=== PATIENT | male | born 1970 | race African-American/Black ===

== ENCOUNTER 2024-07-28 01:43 | Inpatient (IN) | payer OTHER ==
[~2024-07-28] VITALS: Ht 185.4 cm; Wt 90.9 kg
[2024-07-28 02:11] LABS: BASOPHILS % (AUTO) 0.3 % (0.0-2.0); EOSINOPHILS % (AUTO) 0.6 % (1.0-6.0); HEMATOCRIT 44.2 % (41-53); HEMOGLOBIN 15.1 g/dL (13.5-17.5); LYMPHOCYTES # (AUTO) 1.4 K/uL (1.0-4.8); LYMPHOCYTES % (AUTO) 17.3 % (22.0-44.0); MEAN CORPUSCULAR HEMOGLOBIN 30.6 pg (26.0-34.0); MEAN CORPUSCULAR HGB CONC 34.2 G/dL (31.0-37.0); MEAN CORPUSCULAR VOLUME 89 fL (80-100); MONOCYTES # (AUTO) 0.9 K/uL (0.1-1.0); MONOCYTES % (AUTO) 11.9 % (2.0-9.0); NEUTROPHILS # (AUTO) 5.5 K/uL (1.8-7.7); NEUTROPHILS % (AUTO) 69.9 % (40.0-70.0); PLATELET COUNT (AUTO) 227 K/uL (150-450); RED BLOOD CELL COUNT(AUTO) 4.94 MIL/uL (4.50-5.90); WHITE BLOOD COUNT (AUTO) 7.9 K/uL (4.5-11.0)
[2024-07-28] MEDS ORDERED: IOHEXOL 350 MG/ML 100 ML VIAL ONE (02:14)
[2024-07-28] MEDS ORDERED: SODIUM CHLORIDE 0.9% 100 ML ONE (02:15)
[2024-07-28 02:19] LABS: ANION GAP 8 mmol/L (8-16); CALCIUM, TOTAL 9.4 mg/dL (8.8-10.5); CARBON DIOXIDE 28 mmol/L (22-29); CHLORIDE 104 mmol/L (98-107); CREATININE 1.41 mg/dL (0.60-1.30); GLOMERULAR FILTR. RATE CALC > 60 mL/min (>60); GLUCOSE,RANDOM 98 mg/dL (70-110); POTASSIUM 3.7 mmol/L (3.5-5.1); SODIUM SERUM 140 mmol/L (136-145); UREA NITROGEN, BLOOD 27 mg/dL (7-18)
[2024-07-28 02:25] LABS: ALANINE AMINOTRANSFERASE 45 U/L (12-78); ALBUMIN 3.7 g/dL (3.4-5.0); ALKALINE PHOSPHATASE 118 U/L (46-116); ASPARTATE AMINOTRANSFERASE 78 U/L (15-37); BILIRUBIN,TOTAL 3.8 mg/dL (0.1-1.0); TOTAL PROTEIN, SERUM 7.5 g/dL (6.4-8.2)
[2024-07-28 02:26] LABS: AMMONIA < 10 umol/L (11-32)
[2024-07-28 02:34] LABS: ALCOHOL, BLOOD (SERUM) < 3 mg/dL (0-10); CREATINE KINASE, TOTAL ONLY 1926 U/L (39-308); TROPONIN I-HIGH SENSITIVITY 22 ng/L (<76)
[2024-07-28 02:41] LABS: B-TYPE NATRIURETIC PEPTIDE 29 pg/mL (0-100)
[2024-07-28] MEDS: LABETALOL HCL 5 MG/ML 20 ML VIAL IVP ONE (02:59)
[2024-07-28] MEDS: LevETIRAcetam 1,000 MG in DEXTROSE 5%-WATER 100 ML IV ONE (03:00)
[2024-07-28] MEDS: NiCARDipine HCL 25 MG in SODIUM CHLORIDE 0.9% 240 ML IV PRN (03:01)
[2024-07-28 03:21] LABS: PROTHROMBIN TIME 11.4 SEC (9.4-11.6)
[2024-07-28 05:19] LABS: APPEARANCE,URINE CLEAR (CLEAR); BILIRUBIN,URINE NEGATIVE (NEGATIVE); COLOR,URINE LIGHT YELLOW (YELLOW); GLUCOSE, URINE (UA) NEGATIVE (NEGATIVE); LEUKOCYTE ESTERASE ,URINE NEGATIVE (NEGATIVE); NITRATE,URINE NEGATIVE (NEGATIVE); OCCULT BLOOD,URINE SMALL (NEGATIVE); PH,URINE 6.5 (5.0-8.0); PROTEIN,URINE TRACE mg/dL (NEGATIVE); SPECIFIC GRAVITIY, URINE 1.045 (1.003-1.030); UROBILINOGEN,URINE <=1.0 mg/dL (<=1.0)
[2024-07-28] MEDS: SODIUM CHLORIDE 0.9% 1,000 ML IV ONE (05:27)
[2024-07-28 05:34] LABS: BACTERIA,URINE None Seen /HPF (None Seen); RBC,URINE 0-2 /HPF (0-2); SQUAMOUS EPITHELIAL CELL,UR Few /LPF (None Seen); WBC,URINE None Seen /HPF (0-5)
[2024-07-28 06:44] LABS: PH,URINE DRUG SCREEN 6.5 (5.0-8.0)
[2024-07-28 06:53] LABS: ALCOHOL, URINE DRUG SCREEN NEGATIVE (NEGATIVE); AMPHET/METH SCREEN,URINE NEGATIVE (NEGATIVE); BARBITURATE SCREEN, URINE NEGATIVE (NEGATIVE); BENZODIAZEPINES SCREEN,URINE NEGATIVE (NEGATIVE); CANNABINOID SCREEN,URINE NEGATIVE (NEGATIVE); COCAINE SCREEN,URINE NEGATIVE (NEGATIVE); METHADONE SCREEN, URINE NEGATIVE (NEGATIVE); OPIATE SCREEN,URINE NEGATIVE (NEGATIVE); PHENCYCLIDINE SCREEN,URINE NEGATIVE (NEGATIVE)
[2024-07-28] MEDS ORDERED: GADOTERATE MEGLUMINE 10 MMOL/20 ML VIAL IVP ONE (08:46)
[2024-07-28] MEDS ORDERED: ONDANSETRON HCL 4 MG/2 ML VIAL IVP PRN (12:15)
[2024-07-28] MEDS: LOSARTAN POTASSIUM 50 MG TABLET PO SCH (13:10)
[2024-07-28] MEDS: HydrALAZINE HCL 20 MG/ML VIAL IVP PRN (18:46)
[2024-07-28 20:11] VITALS: BP 143/99; PULSE 67; RESP 18; TEMP 98.1; O2SAT 97
[2024-07-28] MEDS: DOCUSATE SODIUM 100 MG CAPSULE PO SCH (20:21)
[2024-07-28] MEDS: ACETAMINOPHEN 325 MG TABLET PO PRN (20:22)
[2024-07-28 23:42] VITALS: BP 107/85; PULSE 81; RESP 17; TEMP 98.2; O2SAT 98
[2024-07-29 03:54] VITALS: BP 112/84; PULSE 85; RESP 19; TEMP 97.7; O2SAT 97
[2024-07-29 06:43] LABS: COVID AG,FIA SOURCE NASAL SWAB
[2024-07-29 07:51] LABS: SARS-COV2 (COVID) ANTIGEN,FIA Negative (Negative)
[2024-07-29 08:11] LABS: BASOPHILS % (AUTO) 0.3 % (0.0-2.0); EOSINOPHILS % (AUTO) 0.2 % (1.0-6.0); HEMATOCRIT 45.6 % (41-53); HEMOGLOBIN 15.5 g/dL (13.5-17.5); LYMPHOCYTES # (AUTO) 0.8 K/uL (1.0-4.8); LYMPHOCYTES % (AUTO) 14.5 % (22.0-44.0); MEAN CORPUSCULAR HEMOGLOBIN 30.4 pg (26.0-34.0); MEAN CORPUSCULAR VOLUME 89 fL (80-100); MONOCYTES # (AUTO) 0.7 K/uL (0.1-1.0); MONOCYTES % (AUTO) 13.2 % (2.0-9.0); NEUTROPHILS # (AUTO) 3.8 K/uL (1.8-7.7); NEUTROPHILS % (AUTO) 71.8 % (40.0-70.0); PLATELET COUNT (AUTO) 188 K/uL (150-450); RED CELL DISTRIBUTION WIDTH 12.9 % (11.5-14.5); WHITE BLOOD COUNT (AUTO) 5.3 K/uL (4.5-11.0)
[2024-07-29 08:21] VITALS: BP 135/99; PULSE 89; RESP 17; TEMP 98.6; O2SAT 100
[2024-07-29 08:25] LABS: ANION GAP 7 mmol/L (8-16); CARBON DIOXIDE 26 mmol/L (22-29); CHLORIDE 105 mmol/L (98-107); CREATININE 1.26 mg/dL (0.60-1.30); GLOMERULAR FILTR. RATE CALC > 60 mL/min (>60); GLUCOSE,RANDOM 80 mg/dL (70-110); POTASSIUM 3.6 mmol/L (3.5-5.1); SODIUM SERUM 138 mmol/L (136-145); UREA NITROGEN, BLOOD 23 mg/dL (7-18)
[2024-07-29] MEDS: FAMOTIDINE 20 MG TABLET PO SCH (08:26)
[2024-07-29] MEDS: LevETIRAcetam 500 MG TABLET PO SCH (08:26)
[2024-07-29 11:15] LABS: CHOL/HDL RATIO 2.4 (4.2-7.3); CHOLESTEROL 147 mg/dL (131-200); HDL CHOLESTEROL 61 mg/dL (40-60); LDL CHOL (CALC.) 76 mg/dL (0-130); TRIGLYCERIDES 51 mg/dL (15-150)
[2024-07-29] MEDS ORDERED: LOSA-381 PO (11:34)
[2024-07-29 12:23] VITALS: BP 138/101; PULSE 87; RESP 17; TEMP 98.9; O2SAT 98
[2024-07-29 12:34] VITALS: BP 134/95
[2024-07-29 12:36] LABS: HEMOGLOBIN A1C 4.5 % (3.8-5.6)
[2024-07-29] MEDS ORDERED: LEVE750T35 PO (13:09)
[2024-07-29 15:30] VITALS: BP 147/107; PULSE 80; RESP 18; TEMP 97.5; O2SAT 98
== END 2024-07-29 17:00 | disposition home or self-care (01) | DRG 64 ==
LOC: EMS 01:53 → EDH 08:02 → 5S 20:04
PROVIDERS: ADMIT Internal Medicine; ATTEND Internal Medicine
DX: I62.9 Nontraumatic intracranial hemorrhage, unspecified (principal); G93.6 Cerebral edema; I16.1 Hypertensive emergency; N17.9 Acute kidney failure, unspecified; G93.40 Encephalopathy, unspecified; I10 Essential (primary) hypertension; Z20.822 Contact with and (suspected) exposure to COVID-19; Z79.899 Other long term (current) drug therapy
CPT/HCPCS: 70450; 70496; 70498; 70553; 71045; 80048; 80061; 80076; 80307; 81001; 82140; 82550; 83036; 83735; 83880; 84484; 85025; 85610; 85730; 86850; 86900; 86901; 93005; 96365; 96375; 97162; 97165; 97535; 99285; G0480; J0360; J0712; J3490; J7050; J7060; 36415-L1; 36415-TC